=== PATIENT | male | born 1985 | race Caucasian/White ===

== ENCOUNTER 2020-10-01 15:11 | Emergency (ER) | payer OTHER ==
[~2020-10-01] VITALS: Ht 188 cm; Wt 110.9 kg
[2020-10-01 15:11] VITALS: BP 137/98
[2020-10-01] MEDS ORDERED: IBUP-1114 PO (15:19)
[2020-10-01] MEDS ORDERED: ACETAMINOPHEN 325 MG TAB PO ONE (15:30)
[2020-10-01] MEDS ORDERED: CYCLOBENZAPRINE 10MG TABLET PO ONE (15:30)
[2020-10-01] MEDS ORDERED: CYCL-707 PO (15:34)
== END 2020-10-01 15:40 | disposition home or self-care (01) ==
LOC: M ED 15:11
DX: M62.830 Muscle spasm of back (principal)